=== PATIENT | female | born 1950 | race Caucasian/White ===

== ENCOUNTER 2021-10-25 18:38 | Emergency (ER) | payer OTHER, MEDICARE ==
[~2021-10-25 18:38] MED LIST: FLEXERIL10 MG PO; GLUCOTROL10 MG PO; HCTZ25 MG PO; LEVOTHYROXINE50 MCG PO; LISINOPRIL40 MG PO; LOVASTATIN40 MG PO; METFORMIN HCL1000 MG PO
[2021-10-25 19:36] LABS: BASOPHIL 1.4 % (0-2); EOSINOPHIL 6.2 % (0-7); HCT 37.4 % (37.0-47.0); HGB 12.2 g/dl (12.5-16.0); MCH 30.2 pg (25.0-31.0); MCHC 32.6 g/dL (32.0-36.0); MCV 92.6 fL (78.0-100.0); MONOCYTE 12.4 % (0-12); MPV 10.3 fL (6.0-9.5); NEUTROPHIL 46.6 % (41-80); NRBC 0; PLT 207 K/uL (150-400); RBC 4.04 M/uL (4.20-5.40); RDW 12.8 % (11.5-14.0); WBC 7.7 K/uL (4.0-10.5)
[2021-10-25 19:45] LABS: INR 1.05 (0.9-1.2); PROTHROMBIN TIME 13.1 SECONDS (11.8-13.4)
[2021-10-25 19:54] LABS: ALBUMIN 3.5 g/dL (3.4-5.0); BILIRUBIN - TOTAL 0.4 mg/dL (0.2-1.0); BUN/CREAT RATIO (CALC) 13.9 RATIO; CREATININE 1.15 mg/dL (0.51-0.95); GLOBULIN (CALCULATION) 3.9 g/dL; POTASSIUM 3.7 mmol/L (3.5-5.1); TOTAL PROTEIN 7.4 g/dL (6.4-8.2)
== END 2021-10-25 21:50 | disposition home or self-care (01) ==
LOC: FER 18:38
PROVIDERS: Emergency Medicine
DX: R07.89 Other chest pain (principal); I10 Essential (primary) hypertension; E11.9 Type 2 diabetes mellitus without complications; V43.52XA Car driver injured in collision with other type car in traffic accident, initial encounter
CPT/HCPCS: 36415; 70450; 71260; 72125; 72128; 72131; 80053; 84484; 85025; 85610; 93005; J7030; Q9967